=== PATIENT | female | born 1940 | race Caucasian/White ===

== ENCOUNTER → 2016-07-22 | Outpatient (CLI) | payer BC ==
[~2016-07-22] MED LIST: ASPCH81X PO; CHOL100010 PO; GLUC1500 PO; LISI10TA PO
--- NOTE | 2016-07-23 13:02 | MAMMOGRAPHY REPORT ---
BILATERAL DIGITAL SCREENING MAMMOGRAM TOMOSYNTHESIS WITH CAD: 07/22/2016 CLINICAL HISTORY: Routine screening examination. TECHNIQUE: Breast tomosynthesis in addition to standard 2D mammography was performed. Current study was also evaluated with a Computer Aided Detection (CAD) system. COMPARISON: Comparison is made to exams dated: 07/20/2015 mammogram, 07/13/2015 mammogram, 07/11/2014 m ammogram, 07/11/2014 ultrasound, 06/03/2012 mammogram, and 05/28/2011 mammogram - [facility]. BREAST COMPOSITION: The tissue of both breasts is heterogeneously dense, which may obscure small ma sses. FINDINGS: There are scattered benign-appearing microcalcifications in the breasts. No suspicious ma ss, architectural distortion or cluster of new, suspicious microcalcifications is seen. IMPRESSION: ACR BI-RADS CATEGORY 1: NEGATIVE There is no mammographic evidence of malignancy. A 1 year screening mammogram is recommended. The p atient will receive written notification of the results. Approximately 10% of breast cancers are not detected with mammography. A negative mammographic repor t should not delay biopsy if a clinically suggestive mass is present. Iman Knight M.D. ay/:07/22/2016 16:43:28 Inclusion Manager: Alize BERNAL(Cosme)(Kerwin)(ROCKY), [facility] letter sent: Normal 1/2 BI-RADS Code: ACR BI-RADS Category 1: Negative
== END | disposition home or self-care (01) ==
LOC: C.MAMM 13:23
PROVIDERS: ATTEND Obstetrics & Gynecology
DX: Z12.31 Encounter for screening mammogram for malignant neoplasm of breast (principal)

== ENCOUNTER → 2016-10-21 | Outpatient (CLI) | payer BC ==
--- NOTE | 2016-10-21 11:11 | DIAGNOSTIC IMAGING REPORT ---
ULTRASOUND KIDNEYS AND BLADDER CLINICAL HISTORY: Follow-up renal cyst.. COMPARISON STUDY: Renal ultrasound dated 10/16/2015. Abdominal CT dated 09/05/2008. TECHNIQUE: Real-time, grayscale, and color flow sonography of the kidneys and bladder is performed. Images are reviewed in the transverse and longitudinal planes. FINDINGS: Kidneys: The kidneys demonstrate mild cortical atrophy end are normal in echotexture. The right kidney measures 10.0 cm in length and the left kidney measures 10.3 cm in length. There is no hydronephrosis. No shadowing renal calculi are identified. There is no sonographic evidence of contour deforming renal mass lesion. No perinephric fluid is identified. Bladder: The bladder is normal in appearance. Bilateral ureteral jets were seen. IMPRESSION: 1. The kidneys demonstrate mild cortical atrophy and are without hydronephrosis. 2. The 1.1 cm cyst seen in the right upper pole on 10/16/2015 was not clearly visualized on today's examination. 3. The bladder is normal as visualized. Electronically signed by: Alvin Luz M.D. 10/21/2016 11:10 AM Dictated Date/Time: 10/21/2016 10:59 AM
== END | disposition home or self-care (01) ==
LOC: C.ULTR 10:03
PROVIDERS: ATTEND Internal Medicine
DX: N28.1 Cyst of kidney, acquired (principal)

== ENCOUNTER → 2016-12-10 | Outpatient (CLI) | payer BC ==
[2016-12-10 13:38] LABS: CALCIUM URINE 6.9 mg/dl
[2016-12-11 16:53] LABS: ALBUMIN 4.2 G/DL (3.8-4.8); GAMMA GLOBULIN 0.7 G/DL (0.8-1.7); MONOCLONAL PROTEIN BAND 1 0.8 G/DL (NOT DETECTED)
== END | disposition home or self-care (01) ==
LOC: C.LAB1850 11:00
PROVIDERS: ATTEND Internal Medicine Rheumatology
DX: M81.0 Age-related osteoporosis without current pathological fracture (principal)

== ENCOUNTER → 2017-03-05 | Outpatient (CLI) | payer BC ==
[2017-03-05 17:44] LABS: URINE APPEARANCE TURBID (CLEAR); URINE BILIRUBIN NEG (NEG); URINE COLOR YELLOW; URINE EPITHELIAL CELL AUTO 0-5 /lpf (0-5); URINE NITRITE POS (NEG); URINE PH >= 9.0 (4.5-7.5); URINE SPECIFIC GRAVITY 1.013 (1.000-1.030); UROBILINOGEN NEG (NEG); ZZUR CULT IF INDIC CLEAN CATCH YES
[2017-03-05 17:56] LABS: MANUAL MICROSCOPIC REQUIRED? NO; REVIEW REQ? NO; SULFASALICYLIC ACID NEG (NEG)
== END ==
LOC: C.LABBFT 12:56
PROVIDERS: ATTEND Physician Assistant Medical
DX: R35.0 Frequency of micturition (principal)

== ENCOUNTER → 2017-06-05 | Outpatient (CLI) | payer BC ==
[2017-06-05 12:35] LABS: BASO % 0.4 %; BASO ABS # 0.02 K/uL (0-0.2); EOS ABS # 0.11 K/uL (0-0.5); HEMATOCRIT 36.6 % (37-47); HEMOGLOBIN 12.4 g/dL (12.0-16.0); IG# 0.02 K/uL (0.00-0.02); LYMPH % 25.7 %; LYMPH ABS # 1.38 K/uL (1.2-3.4); MEAN CELL VOLUME 93.8 fL (80-100); MEAN CORPUSCULAR HEMOGLOBIN 31.8 pg (25-34); MEAN CORPUSCULAR HGB CONC 33.9 g/dl (32-36); MEAN PLATELET VOLUME 10.1 fL (7.4-10.4); MONO % 8.6 %; MONO ABS # 0.46 K/uL (0.11-0.59); NEUT % 62.9 %; NEUT ABS # 3.38 K/uL (1.4-6.5); PLATELET COUNT 227 K/uL (130-400); RED CELL DISTRIBUTION WIDTH CV 12.5 % (11.5-14.5); RED CELL DISTRIBUTION WIDTH SD 42.7 fL (36.4-46.3); WHITE BLOOD COUNT 5.37 K/uL (4.8-10.8)
[2017-06-05 12:48] LABS: HEMOGLOBIN A1C 5.5 % (4.5-5.6)
[2017-06-05 15:48] LABS: ALBUMIN 3.8 gm/dl (3.4-5.0); ALKALINE PHOSPHATASE 75 U/L (45-117); AST/SGOT 15 U/L (15-37); BLOOD UREA NITROGEN 22 mg/dl (7-18); CALCIUM 9.6 mg/dl (8.5-10.1); CARBON DIOXIDE 27 mmol/L (21-32); CHOLESTEROL 195 mg/dl (0-200); CREATININE 1.16 mg/dl (0.60-1.20); GLUCOSE 93 mg/dl (70-99); POTASSIUM 4.5 mmol/L (3.5-5.1); SODIUM 135 mmol/L (136-145)
[2017-06-05 15:55] LABS: ALT/SGPT 23 U/L (12-78); LDL CHOLESTEROL CALCULATED 85 mg/dl; TOTAL PROTEIN 7.5 gm/dl (6.4-8.2); TRANSFERRIN 169 mg/dl (200-360)
== END | disposition home or self-care (01) ==
LOC: C.LABBFT 10:35
PROVIDERS: ATTEND Internal Medicine
DX: I10 Essential (primary) hypertension (principal); E83.119 Hemochromatosis, unspecified; E78.5 Hyperlipidemia, unspecified; M81.0 Age-related osteoporosis without current pathological fracture; R73.03 Prediabetes

== ENCOUNTER → 2017-07-23 | Outpatient (CLI) | payer BC ==
--- NOTE | 2017-07-23 15:13 | MAMMOGRAPHY REPORT ---
BILATERAL DIGITAL SCREENING MAMMOGRAM TOMOSYNTHESIS WITH CAD: 07/23/2017 CLINICAL HISTORY: Routine screening. Patient has no complaints. TECHNIQUE: Breast tomosynthesis in addition to standard 2D mammography was performed. Current study was also evaluated with a Computer Aided Detection (CAD) system. COMPARISON: Comparison is made to exams dated: 07/22/2016 mammogram, 07/20/2015 ultrasound, 07/20/2015 mammogram, 07/13/2015 mammogram, 07/11/2014 mammogram, and 07/11/2014 ultrasound - [facility]. BREAST COMPOSITION: The tissue of both breasts is heterogeneously dense, which may obscure small mas ses. FINDINGS: There are scattered benign-appearing microcalcifications and benign rim calcifications in t he breasts. No suspicious mass, architectural distortion or cluster of suspicious microcalcification s is seen. IMPRESSION: ACR BI-RADS CATEGORY 1: NEGATIVE There is no mammographic evidence of malignancy. A 1 year screening mammogram is recommended. The pa tient will receive written notification of the results. Approximately 10% of breast cancers are not detected with mammography. A negative mammographic report should not delay biopsy if a clinically suggestive mass is present. Iman Knight M.D. ay/:07/23/2017 10:28:32 Mother Tester: Genie Meeks, [facility] letter sent: Normal 1/2 BI-RADS Code: ACR BI-RADS Category 1: Negative
== END | disposition home or self-care (01) ==
LOC: C.MAMM 09:43
PROVIDERS: ATTEND Obstetrics & Gynecology
DX: Z12.31 Encounter for screening mammogram for malignant neoplasm of breast (principal)

== ENCOUNTER → 2017-08-13 | Outpatient (CLI) | payer BC ==
[2017-08-13 17:34] LABS: BASO % 0.4 %; BASO ABS # 0.02 K/uL (0-0.2); EOS % 1.2 %; EOS ABS # 0.07 K/uL (0-0.5); HEMATOCRIT 35.7 % (37-47); HEMOGLOBIN 12.3 g/dL (12.0-16.0); IG# 0.02 K/uL (0.00-0.02); LYMPH ABS # 1.29 K/uL (1.2-3.4); MEAN CELL VOLUME 92.2 fL (80-100); MEAN CORPUSCULAR HEMOGLOBIN 31.8 pg (25-34); MEAN CORPUSCULAR HGB CONC 34.5 g/dl (32-36); MEAN PLATELET VOLUME 9.9 fL (7.4-10.4); MONO % 5.5 %; MONO ABS # 0.31 K/uL (0.11-0.59); NEUT % 69.5 %; NEUT ABS # 3.91 K/uL (1.4-6.5); PLATELET COUNT 230 K/uL (130-400); RED CELL DISTRIBUTION WIDTH CV 12.3 % (11.5-14.5); RED CELL DISTRIBUTION WIDTH SD 41.7 fL (36.4-46.3); WHITE BLOOD COUNT 5.62 K/uL (4.8-10.8)
[2017-08-13 17:57] LABS: ALBUMIN 3.9 gm/dl (3.4-5.0); ALT/SGPT 17 U/L (12-78); BLOOD UREA NITROGEN 27 mg/dl (7-18); CALCIUM 9.4 mg/dl (8.5-10.1); CARBON DIOXIDE 28 mmol/L (21-32); CREATININE 1.18 mg/dl (0.60-1.20); GLUCOSE 92 mg/dl (70-99); POTASSIUM 4.7 mmol/L (3.5-5.1); SODIUM 135 mmol/L (136-145)
[2017-08-13 18:09] LABS: ALKALINE PHOSPHATASE 77 U/L (45-117); AST/SGOT 14 U/L (15-37); TOTAL PROTEIN 7.3 gm/dl (6.4-8.2)
== END | disposition home or self-care (01) ==
LOC: C.LABBFT 15:13
PROVIDERS: ATTEND Internal Medicine Hematology & Oncology
DX: D47.2 Monoclonal gammopathy (principal); E83.119 Hemochromatosis, unspecified